=== PATIENT | female | born 1960 | race Caucasian/White ===

== ENCOUNTER → 2017-07-12 | Outpatient (CLI) | payer OTHER ==
--- NOTE | 2017-07-12 11:49 | ECHOS ---
STRESS ECHOCARDIOGRAM DATE OF SERVICE: 07/12/2017 INDICATIONS: Abnormal EKG. MEDICATIONS: BASELINE HEART RATE: 67 BASELINE BLOOD PRESSURE: 116/65 MAXIMUM HEART RATE: 154 MAXIMUM BLOOD PRESSURE: 154/86 85% MPHR: 139 100% MPHR: 163 METS: 8 MAXIMUM STAGE REACHED: III TOTAL EXERCISE TIME: 7 minutes CLINICAL INFORMATION: Baseline EKG shows sinus rhythm, poor R-wave progression and PVCs. The patient exercised on Lobito protocol for a total of 7 minutes achieving 8 METs, 94% of predicted maximal heart rate without chest pain or diagnostic ST-segment depression. Frequent PVCs were noted throughout the study. Baseline echo shows normal left ventricular size, wall motion and systolic function. Postexercise, there is normal hyperdynamic response of all segments of myocardium noted. CONCLUSIONS: 1. Above-average exercise tolerance. 2. Negative stress test by EKG criteria. 3. Negative stress echo. MMIONL / DARYN: [id number] /
== END | disposition home or self-care (01) ==
LOC: RADNMMAIN 09:57
PROVIDERS: ATTEND Family Medicine
DX: R94.31 Abnormal electrocardiogram [ECG] [EKG] (principal)
CPT/HCPCS: 93017; 93350

== ENCOUNTER → 2018-08-05 | Outpatient (CLI) | payer BC ==
--- NOTE | 2018-08-05 15:44 | BD ---
EXAMINATION TYPE: Axial Bone Density DATE OF EXAM: 08/05/2018 COMPARISON: NONE CLINICAL HISTORY: Height: 5 FT 3 1/2 IN Weight: 136 FRAX RISK QUESTIONS: RISK FACTORS HISTORY OF: Active: YES Postmenopausal woman: AGE 49 MEDICATIONS: Thyroid Medications: YES Which medication: LEVOTHYROXINE How Lon-5 YEARS Additional Medications: LEVOTHYROXINE Additional History: EXAM MEASUREMENTS: Bone mineral densitometry was performed using the Duroline System. Bone mineral density as measured about the Lumbar spine is: ----- L1-L4(G/cm2): 1.445 T Score Values are as follows: ----- L2: 1.4 ----- L3: 3.7 ----- L4: 2.8 ----- L1-L4: 2.2 Bone mineral density has: DECREASED -4.2 % since study of: 2016 Bone mineral density about the R hip (g/cm2): 0.829 Bone mineral density about the L hip (g/cm2): 0.784 T Score values are as follows: -----R Neck: -1.5 -----L Neck: -1.8 -----R Total: -0.6 -----L Total: -0.9 Bone mineral density has: DECREASED -3.9 % since study of: 2016 IMPRESSION: No evidence for osteoporosis or osteopenia. NOTE: T-SCORE=SD OF THE YOUNG ADULT MEAN.
--- NOTE | 2018-08-09 07:45 | MM ---
Reason for exam: screening (asymptomatic). History: Patient is postmenopausal. Excisional biopsy of the right breast, 2012. Physical Findings: A clinical breast exam by your physician is recommended on an annual basis and results should be correlated with mammographic findings. MG Screening Mammo w CAD Bilateral CC and MLO view(s) were taken. No prior studies available for comparison. The breast tissue is heterogeneously dense. This may lower the sensitivity of mammography. Previous mammotome biopsy in the right breast x 2 and in the left breast x 1. 6 o'clock left breast nodular focal asymmetry. Grouped calcifications posteriorly and centrally on MLO. ASSESSMENT: Incomplete: need additional imaging evaluation, BI-RAD 0 RECOMMENDATION: Special view mammogram of the left breast. If lesion persists on supplemental views, image directed ultrasound is recommended. [facility] will attempt to contact patient to return for supplemental views and ultrasound if indicated.
== END | disposition home or self-care (01) ==
LOC: RADMAMWWP 13:56
PROVIDERS: ATTEND Family Medicine
DX: Z12.31 Encounter for screening mammogram for malignant neoplasm of breast (principal); M85.80 Other specified disorders of bone density and structure, unspecified site
CPT/HCPCS: 77067; 77080

== ENCOUNTER → 2018-08-15 | Outpatient (CLI) | payer BC ==
--- NOTE | 2018-08-25 14:51 | MM ---
Reason for exam: additional evaluation requested from abnormal screening. Last mammogram was performed less than 1 month ago. History: Patient is postmenopausal. Excisional biopsy of the right breast, 2012. Physical Findings: Nurse did not find any significant physical abnormalities on exam. MG Work Up Mamm w CAD LT Spot compression CC, spot compression MLO, LM, and MLO with magnification view(s) were taken of the left breast. Prior study comparison: August 05, 2018, bilateral MG screening mammo w CAD. December 17, 2015, mammogram, performed at [place]. December 12, 2013, mammogram, performed at [place]. The breast tissue is heterogeneously dense. This may lower the sensitivity of mammography. Finding: There is a persistent equal density (isodense), circumscribed oval mass located 4 cm from the nipple in the lower outer quadrant, middle position of the left breast. New finding since August 05, 2018, December 17, 2015, and December 12, 2013. These results were verbally communicated with the patient and result sheet given to the patient on 08/15/18. ASSESSMENT: Suspicious, BI-RAD 4 RECOMMENDATION: Surgical consultation and stereotactic core biopsy of the left breast. (left breast oval density)
--- NOTE | 2018-08-25 14:55 | USB ---
Reason for exam: additional evaluation requested from abnormal screening. History: Patient is postmenopausal. Excisional biopsy of the right breast, 2012. US Breast Workup Limited LT Left limited breast ultrasound including focal area of concern, retroareolar and axilla demonstrates a 0.6 x 0.5cm oval, hypoechoic lesion at 11 o'clock only seen in the plane and blends with surrounding tissue, does not correlate with mammogram. These results were verbally communicated with the patient and result sheet given to the patient on 08/15/18. ASSESSMENT: Incomplete: need additional imaging evaluation, BI-RAD 0 RECOMMENDATION: Surgical consultation, ultrasound core biopsy, and ultrasound of the left breast. Also scan lower outer quadrant left breast attention 5-6 o'clock mammogram. If ultrasound is positive, ultrasound core biopsy instead of stereotactic core biopsy. Patient will return additional ultrasound of the left breast on 08/26/18.
== END ==
LOC: RADMAMWWP 14:12
PROVIDERS: ATTEND Family Medicine
DX: R92.8 Other abnormal and inconclusive findings on diagnostic imaging of breast (principal)
CPT/HCPCS: 77065

== ENCOUNTER → 2018-08-26 | Outpatient (CLI) | payer BC ==
--- NOTE | 2018-08-30 10:26 | USB ---
Reason for exam: additional evaluation requested from abnormal screening. History: Patient is postmenopausal. Excisional biopsy of the right breast, 2013. US Breast Workup Limited LT Left limited breast ultrasound including focal area of concern, retroareolar and axilla demonstrates no cystic or solid lesion seen. These results were verbally communicated with the patient and result sheet given to the patient on 08/26/18. ASSESSMENT: Negative, BI-RAD 1 RECOMMENDATION: Stereotactic core biopsy of the left breast. (+mammogram/-ultrasound) Called Dr. Kumar with mammographic findings and has scheduled an appointment for the patient for 09/05/18 at 10:[address] Dasilva. PRELIMINARY REPORT CALLED AND FAXED TO DR. DASILVA ON 08/30/18.
== END ==
LOC: RADUSWWP 13:44
PROVIDERS: ATTEND Family Medicine
DX: R92.8 Other abnormal and inconclusive findings on diagnostic imaging of breast (principal)

== ENCOUNTER → 2018-09-15 | Day surgery (SDC) | payer BC ==
[2018-09-15 10:03] VITALS: BP 120/80; PULSE 70; TEMP 98.2; BMI 23.5
--- NOTE | 2018-09-15 11:11 | USB ---
Reason for exam: additional evaluation requested from prior study. History: Patient is postmenopausal. Excisional biopsy of the right breast, 2012. US Breast Limited LT Left limited breast ultrasound including focal area of concern, retroareolar and axilla demonstrates a 0.3 x 0.2 x 0.3cm lesion at 12 o'clock appear to be a benign lymph node. Scanned 11-3 o'clock, The 11 o'clock area seen previously is no longer identified. Precautionary 6 month follow up recommended for 11 o'clock area, ultrasound core biopsy discontinued. Mammogram was reviewed. On the work up images, no discrete target for biopsy is seen, stereotactic biopsy cancelled. The area becomes less defined on the patient's spot views. These results were verbally communicated with the patient and result sheet given to the patient on 09/15/18. ASSESSMENT: Probably benign, BI-RAD 3 RECOMMENDATION: Canceled stereotactic biopsy as the area becomes less defined on spot views. A satisfactory biopsy target cannot be identified at this time. Canceled 11:00 ultrasound biopsy as the lesion is no longer identified. Follow-up diagnostic mammogram and ultrasound (11 o'clock) of the left breast in [address] [facility]
== END ==
LOC: RADMAMWWP 09:33
PROVIDERS: ATTEND Student in an Organized Health Care Education/Training Program
DX: R92.8 Other abnormal and inconclusive findings on diagnostic imaging of breast (principal); Z53.9 Procedure and treatment not carried out, unspecified reason

== ENCOUNTER → 2020-04-03 | Outpatient (CLI) | payer BC ==
--- NOTE | 2020-04-03 12:35 | XR ---
EXAMINATION TYPE: XR Hip Complete RT DATE OF EXAM: 04/03/2020 COMPARISON: None HISTORY: Hip pain TECHNIQUE: 2 view right hip FINDINGS: Femoral head articulates with the acetabulum. Joint space appears preserved. No acute fract ure or dislocation is evident. IMPRESSION: 1. Normal 2 view right
== END | disposition home or self-care (01) ==
LOC: RADXRMAIN 12:15
PROVIDERS: ATTEND Family Medicine
DX: M25.551 Pain in right hip (principal)
CPT/HCPCS: 73502

== ENCOUNTER → 2020-05-22 | Outpatient (CLI) | payer BC ==
--- NOTE | 2020-05-23 09:36 | MM ---
Reason for exam: additional evaluation requested from prior study. Last mammogram was performed 1 year and 9 months ago. History: Patient is postmenopausal. Excisional biopsy of the right breast, 2012. Physical Findings: Nurse did not find any significant physical abnormalities on exam. MG Diagnostic Mammo w CAD HIREN Bilateral CC and MLO view(s) were taken. XCCL view(s) were taken of the right breast. Prior study comparison: August 15, 2018, left breast MG work up mamm w CAD LT. August 05, 2018, bilateral MG screening mammo w CAD. The breast tissue is heterogeneously dense. This may lower the sensitivity of mammography. Previous mammotome biopsy in the right breast x 2 and in the left breast. Four groups of calcifications on the left MLO remain unchanged for 1 year 9 months. These results were verbally communicated with the patient and result sheet given to the patient on 05/22/20. ASSESSMENT: Probably benign, BI-RAD 3 RECOMMENDATION: Follow-up diagnostic mammogram of both breasts in 1 year. SHRUTI
== END | disposition home or self-care (01) ==
LOC: RADMAMWWP 15:02
PROVIDERS: ATTEND Family Medicine
DX: N63.20 Unspecified lump in the left breast, unspecified quadrant (principal)
CPT/HCPCS: 77066

== ENCOUNTER → 2021-12-17 | Outpatient (CLI) | payer BC ==
--- NOTE | 2021-12-17 08:56 | XR ---
EXAMINATION TYPE: XR lumbar spine 2 or 3V DATE OF EXAM: 12/17/2021 COMPARISON: None HISTORY: Chronic right-sided lower back pain TECHNIQUE: 3 view lumbar spine FINDINGS: There are 5 lumbar-type vertebral bodies. The pedicles as visualized appear intact. The L1 and L2 pedicles on the right are somewhat limited due to the scoliosis. Scoliosis is present with con vexity to the left centered at approximately L1-2. Some rotoscoliosis appears to be present. Spondylo sis is present. There is loss of disc height throughout the lumbar spine. Some vacuum disc phenomenon is present L5-S1 and L1-2. Mild retrolisthesis of L2 on L3 may be present. IMPRESSION: 1. Suggestion of mild retrolisthesis of L2 on L3. 2. Scoliosis and spondylosis. 3. Multilevel degenerative disc changes. 4. Consider MRI for closer evaluation.
--- NOTE | 2021-12-17 08:57 | XR ---
EXAMINATION TYPE: XR Hip Complete RT DATE OF EXAM: 12/17/2021 COMPARISON: 04/03/2020 HISTORY: Chronic low back pain TECHNIQUE: 2 view right hip FINDINGS: Femoral head articulates with the acetabulum. No acute fracture or dislocation is evident. Follow-up can be performed as clinically indicated. IMPRESSION: 1. No acute osseous abnormality right hip
== END | disposition home or self-care (01) ==
LOC: RADXRMAIN 07:32
PROVIDERS: ATTEND Nurse Practitioner Family
DX: M54.50 Low back pain, unspecified (principal); M25.551 Pain in right hip
CPT/HCPCS: 72100; 73502

== ENCOUNTER → 2021-12-24 | Outpatient (CLI) | payer BC | END | disposition home or self-care (01) | LOC: RADMAMWWP 08:27 | PROVIDERS: ATTEND Family Medicine | DX: R92.8 Other abnormal and inconclusive findings on diagnostic imaging of breast (principal) | CPT/HCPCS: 77066 ==

== ENCOUNTER → 2023-03-03 | Outpatient (CLI) | payer BC ==
--- NOTE | 2023-03-07 17:58 | MM ---
Reason for Exam: Screening (asymptomatic). Last mammogram was performed 1 year(s) and 3 month(s) ago. Patient History: Menarche at age 13. Patient has no children. Right ovary removed at age 45. Postmenopausal. 2012, Excisional Biopsy on the Right side. Risk Values: Darcie 5 year model risk: 1.9%. NCI Lifetime model risk: 8.0%. Prior Study Comparison: 08/15/2018 Left Diagnostic Mammogram, [facility]. 05/22/2020 Bilateral Diagnostic Mammogram, [facility]. 12/24/2021 Bilateral MG diagnostic mammo w CAD HIREN, [facility]. Tissue Density: The breast tissue is heterogeneously dense. This may lower the sensitivity of mammography. Findings: Analyzed By CAD. 2 microclips within the right breast. One microclip within the left breast. There is no suspicious group of microcalcifications or new suspicious mass in either breast. Overall Assessment: Benign, BI-RAD 2 Management: Screening Mammogram of both breasts in 1 year. . Patient should continue monthly self-breast exams. A clinical breast exam by your physician is recommended on an annual basis. This exam should not preclude additional follow-up of suspicious palpable abnormalities. Note on Darcie scores and lifetime risk: 1. A Darcie score greater than 3% is considered moderate risk. If this is the case, consider specialist referral to assess eligibility for a risk reducing agent. 2. If overall lifetime risk for the development of breast cancer is 20% or higher, the patient may qualify for future screening with alternating mammogram and breast MRI. Electronically signed and approved by: Lee Willis M.D. Radiologist
== END | disposition home or self-care (01) ==
LOC: RADMAMWWP 09:52
PROVIDERS: ATTEND Family Medicine
DX: Z12.31 Encounter for screening mammogram for malignant neoplasm of breast (principal); Z78.0 Asymptomatic menopausal state
CPT/HCPCS: 77067

== ENCOUNTER → 2024-06-01 | Outpatient (CLI) | payer BC ==
--- NOTE | 2024-06-01 15:28 | MM ---
Reason for Exam: Screening (asymptomatic). Last mammogram was performed 1 year(s) and 3 month(s) ago. Patient History: Menarche at age 13. Patient has no children. Right ovary removed at age 45. Postmenopausal. 2012, Excisional Biopsy on the Right side. Risk Values: Darcie 5 year model risk: 1.9%. NCI Lifetime model risk: 7.7%. Prior Study Comparison: 05/22/2020 Bilateral Diagnostic Mammogram, [facility]. 12/24/2021 Bilateral MG diagnostic mammo w CAD HIREN, [facility]. 03/03/2023 Bilateral MG screening mammo w CAD, [facility]. Tissue Density: The breasts are heterogeneously dense, which may obscure small masses. Findings: Analyzed By CAD. Some faint grouped calcifications on either side Central posterior MLO views remain unchanged. 2 microclips right breast and one microclip left breast from prior biopsies. Areas of asymmetric density are unchanged. There is no suspicious group of microcalcifications or new suspicious mass in either breast. Overall Assessment: Benign, BI-RAD 2 Management: Screening Mammogram of both breasts in 1 year. Patient should continue monthly self-breast exams. A clinical breast exam by your physician is recommended on an annual basis. This exam should not preclude additional follow-up of suspicious palpable abnormalities. Note on Darcie scores and lifetime risk: 1. A Darcie score greater than 3% is considered moderate risk. If this is the case, consider specialist referral to assess eligibility for a risk reducing agent. 2. If overall lifetime risk for the development of breast cancer is 20% or higher, the patient may qualify for future screening with alternating mammogram and breast MRI. [facility], , 06/01/2024 3:24 PM. Electronically signed and approved by: Lee Willis M.D. Radiologist
== END | disposition home or self-care (01) ==
LOC: RADMAMWWP 10:41
PROVIDERS: ATTEND Family Medicine
DX: Z12.31 Encounter for screening mammogram for malignant neoplasm of breast (principal); R92.333 Mammographic heterogeneous density, bilateral breasts; Z78.0 Asymptomatic menopausal state
CPT/HCPCS: 77067